=== PATIENT | female | born 1965 | race Caucasian/White ===

== ENCOUNTER 2024-08-20 08:28 | Outpatient (CLI) | payer BC, MEDICAID, SELFPAY ==
--- NOTE | ~2024-08-20 | XR_ITS ---
EXAMINATION: XR lumbar spine 6V w bending DATE: 08/20/2024 08:58 INDICATION: Lumbar radicular pain. TECHNIQUE: 7 views of lumbar spine including standing views were obtained. COMPARISON: None. FINDINGS: There is 4 mm anterolisthesis of L4 on L5. There is 11 degrees levoscoliosis of thoracolumb ar spine. Vertebral body heights are normal. There are changes of vertebroplasty in L1. Intervertebra l disc heights are normal. There is multilevel facet joint osteoarthritis, severe bilaterally at L4-L 5 and L5-S1. IMPRESSION: 1. Mild lumbar spondylosis. 2. Thoracolumbar levoscoliosis. Reviewed, dictated and finalized at location B. R GRINDER
== END 2024-08-20 08:29 | disposition home or self-care (01) ==
LOC: MICIMG 08:36
PROVIDERS: PCP Nurse Practitioner Family; Visit Provider Nurse Practitioner Family
DX: M47.26 Other spondylosis with radiculopathy, lumbar region (principal)
CPT/HCPCS: 72114